=== PATIENT | female | born 1930 | race Caucasian/White ===

== ENCOUNTER 2016-10-09 14:04 | Outpatient (CLI) | payer OTHER | END 2016-10-09 19:40 | disposition home or self-care (01) | LOC: SCT 14:04 | DX: S00.93XA Contusion of unspecified part of head, initial encounter (principal); G31.9 Degenerative disease of nervous system, unspecified; W19.XXXA Unspecified fall, initial encounter; Y93.89 Activity, other specified; Y92.89 Other specified places as the place of occurrence of the external cause; Y99.8 Other external cause status | CPT/HCPCS: 70450-TC ==